=== PATIENT | female | born 1975 | race Caucasian/White ===

== ENCOUNTER 2017-07-25 22:20 | Emergency (ER) | payer MEDICAID ==
[~2017-07-25] VITALS: Ht 172.7 cm; Wt 68.0 kg
--- NOTE | 2017-07-25 22:20 | NUR ---
Pt brought into ER by son, pt was found unconscious and unresponsive on the couch. Pt c/o severe headache and fever.
--- NOTE | 2017-07-25 22:30 | NUR ---
Dr. Reyes at bedside for MSE.
[2017-07-25] MEDS ORDERED: IV NORMAL SALINE 1000 ML BAG IV ONE (22:45)
[2017-07-25] MEDS ORDERED: KETOROLAC TROMETHAMINE 30 MG INJ IVP ONE (22:45)
[2017-07-25] MEDS ORDERED: ACETAMINOPHEN ES 500 MG TABLET PO ONE (22:45)
[2017-07-25 22:57] LABS: BASOPHILS # (AUTO) 0.1 K/uL (0.0-8.0); BASOPHILS % (AUTO) 0.5 % (0.0-2.0); EOSINOPHILS % (AUTO) 0.2 % (0.0-7.0); HEMATOCRIT 40.3 % (31.2-41.9); HEMOGLOBIN 13.8 g/dL (10.9-14.3); LYMPHOCYTES # (AUTO) 0.6 K/uL (20.0-40.0); LYMPHOCYTES % (AUTO) 4.3 % (20.5-51.5); MEAN CORPUSCULAR HEMOGLOBIN 31.7 uug (24.7-32.8); MEAN CORPUSCULAR HGB CONC 34 g/dL (32.3-35.6); MEAN CORPUSCULAR VOLUME 92.8 fL (75.5-95.3); MONOCYTES # (AUTO) 0.9 K/uL (2.0-10.0); MONOCYTES % (AUTO) 6.5 % (0.0-11.0); NEUTROPHILS # (AUTO) 11.8 K/uL (1.8-8.9); NEUTROPHILS % (AUTO) 88.5 % (38.5-71.5); PLATELET COUNT (AUTO) 209 K/uL (179-408); RED BLOOD CELL COUNT(AUTO) 4.35 MIL/uL (3.63-4.92); WHITE BLOOD COUNT (AUTO) 13.3 K/uL (3.8-11.8)
[2017-07-25] MEDS ORDERED: MORPHINE SULFATE 2 MG/1 ML DISP.SYRIN IV ONE (23:00)
[2017-07-25] MEDS ORDERED: ONDANSETRON 4 MG/2 ML VIAL IV ONE (23:00)
[2017-07-25 23:05] LABS: CREATININE 1.1 mg/dL (0.6-1.3); POTASSIUM 3.5 mmol/L (3.5-5.1)
[2017-07-25] MEDS ORDERED: KETOROLAC TROMETHAMINE 30 MG INJ ONE (23:05)
[2017-07-25] MEDS ORDERED: ACETAMINOPHEN ES 500 MG TABLET ONE (23:06)
[2017-07-25] MEDS ORDERED: ONDANSETRON 4 MG/2 ML VIAL ONE (23:06)
[2017-07-25] MEDS ORDERED: MORPHINE SULFATE 4 MG/1 ML DISP.SYRIN ONE (23:07)
[2017-07-25 23:08] LABS: *MONOTEST NEGATIVE (NEGATIVE)
[2017-07-25 23:13] LABS: BILIRUBIN,DIRECT 0.1 mg/dL (0.0-0.2); BILIRUBIN,TOTAL 0.4 mg/dL (0.2-1.0); TOTAL PROTEIN, SERUM 7.3 g/dL (6.4-8.2)
--- NOTE | 2017-07-25 23:15 | NUR ---
Note marco a in EDM - 07/25/17 at 2354 by NENITA Pt brought into ER by son, pt was found unconscious and unresponsive on the couch. Pt c/o severe headache and fever.
[2017-07-25] MEDS ORDERED: IV NORMAL SALINE 100 ML ONE (23:24)
[2017-07-25] MEDS ORDERED: NORMAL SALINE FLUSH 10 ML DISP.SYRIN ONE (23:24)
[2017-07-25] MEDS ORDERED: SWABABLE VALVE TRANSFER SET EA MC ONE (23:24)
[2017-07-25] MEDS ORDERED: IOHEXOL 300MG/ML 100 ML INFUS..BTL ONE ×2 (23:24→23:27)
[2017-07-25] MEDS ORDERED: HYDROMORPHONE 2 MG/1 ML DISP.SYRIN ONE (23:26)
[2017-07-25] MEDS ORDERED: HYDROMORPHONE 1 MG/1 ML DISP.SYRIN IV ONE (23:30)
--- NOTE | 2017-07-25 23:37 | NUR ---
Pt out of ER for CT.
[2017-07-25] MEDS ORDERED: CEFTRIAXONE 1 G in IV DEXTROSE 5% 50 ML IV ONE (23:45)
[2017-07-25] MEDS ORDERED: CEFTRIAXONE 1 G VIAL ONE (23:49)
--- NOTE | 2017-07-26 00:03 | NUR ---
Pt back to ER from CT.
--- NOTE | 2017-07-26 00:05 | NUR ---
Pt's O2 Sat 88% on room air, placed patient on 2L/min via nasal cannula. MD notified.
[2017-07-26] MEDS ORDERED: IV NORMAL SALINE 1000 ML BAG IV ONE ×2 (00:30→02:45)
--- NOTE | 2017-07-26 00:59 | NUR ---
Dr. Reyes on phone with Dr. Yolanda adorno.
[2017-07-26 01:50] LABS: *BILIRUBIN,URIN NEGATIVE (NEGATIVE); *BLOOD, URINE 2+ (NEGATIVE); *CLARITY,URINE CLEAR (CLEAR); *COLOR,URINE YELLOW (YELLOW); *KETONES,URINE NEGATIVE (NEGATIVE); *PROTEIN,URINE NEGATIVE (NEGATIVE); *UROBILINOGEN,URINE 0.2 E.U./dl (NORMAL); LEUKOCYTE ESTERASE ,URINE NEGATIVE (NEGATIVE); NITRITE, URINE NEGATIVE (NEGATIVE); PH,URINE 6.5 (5.0-8.0); UGLUCOSE NEGATIVE (NEGATIVE)
[2017-07-26 01:54] LABS: CSF GLUCOSE 67 mg/dL (40-70); CSF PROTEIN 56 mg/dL (15-45)
[2017-07-26 02:02] LABS: BACTERIA,URINE NONE SEEN /HPF (NONE SEEN); SQUAMOUS EPITHELIAL CELL,UR FEW /HPF (NONE SEEN); WBC,URINE 0-3 /HPF (0-3)
--- NOTE | 2017-07-26 02:30 | NUR ---
Pt's blood pressure is low 80/44, HR 96. MD notified.
--- NOTE | 2017-07-26 03:45 | NUR ---
Pt states she wants to go home, reports she has a headache, but willing to go home because she can't rest in the hospital.
--- NOTE | 2017-07-26 04:25 | NUR ---
Patient discharged to home in stable conditon. Written and verbal after care instructions given. Patient verbalizes understanding of instructions. Patient out of ER via wheelchair, accompanied by son, VSS, no acute signs of distress, all belongings taken, IV site discontinued.
[2017-07-26 04:29] VITALS: BP 90/58
== END 2017-07-26 04:30 | disposition home or self-care (01) ==
LOC: ER 22:20
DX: R51 Headache (principal); R55 Syncope and collapse; J02.8 Acute pharyngitis due to other specified organisms; B97.89 Other viral agents as the cause of diseases classified elsewhere; G93.40 Encephalopathy, unspecified; Z88.8 Allergy status to other drugs, medicaments and biological substances
CPT/HCPCS: 36415 ×2; 62270; 70450; 70491; 71045; 80048; 80076; 81001; 82945; 83605; 83880; 84157; 84703; 85025; 85730; 86308; 86403; 87040 ×2; 87070 ×2; 87086; 87205; 93005; 96361; 96365; 96375; 99285; A4663; A9150; J0696; J1170; J1885; J2270; J2405; J3490 ×2; J7030 ×3; J7060; Q9967